=== PATIENT | female | born 1985 ===

== ENCOUNTER → 2019-05-16 07:39 | Outpatient (BNVA) | payer OTHER, SELFPAY | PROVIDERS: Family Provider Family Medicine; PCP Family Medicine; Visit Provider Obstetrics & Gynecology | DX: O09.893 Supervision of other high risk pregnancies, third trimester (principal) | CPT/HCPCS: 81000; 87081 ==

== ENCOUNTER → 2019-05-23 14:19 | Outpatient (BNVA) | payer OTHER, SELFPAY | PROVIDERS: Family Provider Family Medicine; PCP Family Medicine; Visit Provider Obstetrics & Gynecology | DX: O09.893 Supervision of other high risk pregnancies, third trimester (principal) | CPT/HCPCS: 81000; 85027 ==

== ENCOUNTER 2019-06-02 17:30 | Inpatient (IN) | payer OTHER, SELFPAY ==
[2019-06-02] VITALS (19 sets, daily range): BP systolic 0–131; BP diastolic 0–86; PULSE 75–92; RESP 18; TEMP 36.4–36.7; O2SAT 97–100; BMI 30.6
[2019-06-02 18:09] LABS: Basophils % 0.1 %; Eosinophils # 0.1 10^3/uL (0.0-0.8); Eosinophils % 1.1 %; Hematocrit 32.6 % (37.0-47.0); Hemoglobin 10.6 g/dL (11.5-15.3); Lymphocytes # 1.3 10^3/uL (0.8-4.8); Lymphocytes % 15.2 %; Mean Corpuscular HGB Conc 32.5 g/dL (30.0-36.0); Mean Corpuscular Hemoglobin 28.5 pg (28.0-34.0); Mean Corpuscular Volume 87.6 fL (81-99); Mean Platelet Volume 12.4 fL (7.4-10.4); Monocytes # 0.7 10^3/uL (0.2-0.9); Monocytes % 8.6 %; Neutrophils # 6.3 10^3/uL (1.8-7.7); Neutrophils % 74.5 %; Nucleated Red Blood Cells % 0 %; Platelet Count 170 10^3/cmm (130-400); Red Blood Count 3.72 10^6/uL (4.1-5.3); Red Cell Distribution Width 13.2 % (12.1-15.1); White Blood Count 8.4 10^3/uL (4.0-10.0)
--- NOTE | 2019-06-02 18:12 | PM.HPUD ---
H&P update H&P Update: DATE OF SURGERY/PROCEDURE: 06/02/19 DATE H&P PERFORMED: 06/02/19 H&P UPDATE INFORMATION: H&P completed within last 30 days, No changes to prior documentation and H&P to be scanned into chart PREOP DIAGNOSIS: Non-reassuring testing, Prior section - desires repeat, PRIMARY INDICATION FOR PROCEDURE: at 38-57 weeks gestation PLANNED PROCEDURE: Repeat section
[2019-06-02] MEDS: famotidine 20 mg/2 mL INJ IVP (18:19)
[2019-06-02] MEDS: lactated ringers 1,000 ML 125 ML IV (18:19)
[2019-06-02] MEDS: metoclopramide 5 mg/mL SDV 2 mL 10 MG IV ×2 (18:20→18:24)
--- NOTE | 2019-06-02 20:30 | PM.OP ---
Operative Report Date of procedure: 06/02/19 Pre-op Diagnosis: Non-reassuring testing, Prior section - desires repeat, Pre-op Diagnosis: at 38-5/7 weeks gestation, GBS infection in child of prior in third trimester Post-op diagnosis: same (Viable male ) Procedure Done: Repeat low transverse section Surgeon: Haresh Reeves Anesthesia: Other (Spinal) Estimated blood loss (mL): 800 IV fluids (mL): 1,000 Complications: None Brief History: Patient is a 33-year-old female 7, para 2-0-4-1 with an LMP of 09/04/2018 and an EDC of 06/11/2019 based on LMP and consistent with an 8-week ultrasound, which placed her at 38-5/7 weeks gestation today. She had presented to the office for routine visit. While at the office, she reported decreased movement today and as a result an NST was performed. She had a nonreactive NST and then had a biophysical profile performed with 2 off for lack of breathing movements. This gave a total score of 6 out of 10 on the NST with BPP. Recommendations with the findings on this evaluation are to proceed to delivery since she is 38+ weeks gestation for nonreassuring testing. Patient had had 2 prior sections and was requesting repeat section. As a result she was prepared for repeat section. Procedure: Patient was taken to the operating room where spinal anesthesia was obtained. She was prepped and draped in the usual sterile fashion in a dorsal supine position with a leftward tilt. Palma catheter and sequential compression boots had been placed prior to starting the case. Patient's prior Pfannenstiel skin incision was excised with a knife and carried down to the underlying fascia with the knife. Fascia was incised in the midline with the knife and extended laterally with Zhao scissors. Superior aspect of the fascia was grasped with Crystal clamps, elevated, and sharply and bluntly dissected. The inferior aspect of the fascia was grasped with Crystal clamps, elevated, and sharply and bluntly dissected. The rectus muscles were in the midline. Peritoneum was sharply entered. Peritoneal incision was extended both superiorly and inferiorly with good visualization of the bladder. Bladder blade was inserted. The vesicouterine peritoneum was tented up and sharply entered. It was extended laterally and the bladder flap was created digitally. Bladder blade was reinserted. A transverse incision was made with the knife in the lower uterine segment. Clear fluid was obtained upon entry into the uterine cavity. The baby was floating high in the uterus. Initially attempted to deliver the head, but was unsuccessful. Attempted to apply Kiwi vacuum to the head but had difficulty getting adequate seal due to the amount of hair present. Was eventually able to get adequate seal but with initial traction applied the vacuum came off. At this point decision was made to abandon attempted delivery with vacuum. With further fundal pressure the infant's head was delivered. One loop of nuchal cord was noted and reduced. The rest of the delivered atraumatically. Nose and mouth were suctioned with bulb suction. Cord was clamped and cut and the infant was handed off to Dr. Rome and the waiting nurses. Cord blood was obtained. Placenta was delivered via uterine massage. Patient received 20 units of Pitocin in the IV fluids. The uterus was exteriorized and cleared of clots and debris. The uterine incision was closed in a running locking fashion using 0 Vicryl suture. The incision was imbricated using 0 Vicryl suture in a horizontal mattress fashion. The incision was inspected and noted to be hemostatic. Posterior cul-de-sac was thoroughly irrigated and cleared of clots and blood. The uterus was returned to the abdomen. The uterine incision was irrigated and noted to be hemostatic. The gutters were cleared of clots and blood. The rectus muscles and peritoneum were reapproximated in the midline using interrupted stitches of 2-0 Vicryl suture. The muscle layer was irrigated and noted to be hemostatic. The fascia was reapproximated using 0 Vicryl suture in a running fashion. The subcutaneous layer was irrigated and brought to hemostasis using electrocautery. It was reapproximated using 3-0 plain suture in an interrupted fashion and also 3-0 Vicryl suture in a running fashion. Skin was reapproximated using 4-0 Monocryl in a subcuticular fashion. Steri-Strips were applied. Patient tolerated the procedures well. Sponge, needle, and instrument counts were correct. DRAINS: Palma catheter SPECIMENS: None FINDINGS: 1. Viable, male infant, cephalic presentation, weighing 7 lbs 1 oz (3215 g) with a length of 20-1/2 inches and Apgars of 8 at 1 minute and 8 at 5 minutes. 2. Normal appearing uterus, tubes, and ovaries. POSTOPERATIVE STATUS: The patient was left to recover in satisfactory condition
--- NOTE | 2019-06-02 20:41 | ANE.PACU ---
 Inpatient post-anesthesia follow up: Airway intact: Yes Vital signs: Temperature Pulse Rate 75 Respiratory Rate Blood Pressure 119/55 Pulse Oximetry Oxygen Delivery Me thod Room Air Oxygen Flow Rate Fraction of Inspir ed Oxygen Hydration adequate: Yes Nausea and vomiting: No Pain level: 1 Mental status: Baseline
--- NOTE | 2019-06-02 21:55 | PC.NURSE ---
PATIENT MOVED UP FROM PACU TO PP ROOM 207 AT THIS TIME VIA BED
[2019-06-03] VITALS (9 sets, daily range): BP systolic 98–123; BP diastolic 49–70; PULSE 66–84; RESP 18; TEMP 36.6–36.9; O2SAT 98
[2019-06-03] MEDS: lanolin oint 7 gm 1 APPLIC TOPICAL (01:21)
[2019-06-03] MEDS: ketorolac 30 mg/mL INJ IVP (02:47)
[2019-06-03] MEDS: sodium chloride 0.9% 500 ML 999 ML IV (03:40)
[2019-06-03] MEDS: diphenhydrAMINE 50 mg/mL SDV 1mL 25 MG IVP (03:46)
[2019-06-03] MEDS: dextrose 5%-lactated ringers 1,000 ML 125 ML IV (04:11)
--- NOTE | 2019-06-03 05:42 | PC.NURSE ---
Patient up to chair at this time, patient tolerated well
[2019-06-03] MEDS: HYDROcodone-acetaminophen 5-325 mg Tablet PO ×2 (06:14→19:15)
--- NOTE | 2019-06-03 08:07 | PC.NURSE ---
This mom reports nipple pinching with . Helped her with chin first latch, using football and cross cradle hold. She reports improvement but not completely comfortable yet. She is going to continue to work on latch on her own. Provided literature and contact information.
[2019-06-03 09:00] LABS: Hematocrit 27.9 % (37.0-47.0); Hemoglobin 8.9 g/dL (11.5-15.3); Mean Corpuscular HGB Conc 31.9 g/dL (30.0-36.0); Mean Corpuscular Hemoglobin 28.4 pg (28.0-34.0); Mean Corpuscular Volume 89.1 fL (81-99); Mean Platelet Volume 12.1 fL (7.4-10.4); Platelet Count 130 10^3/cmm (130-400); Red Blood Count 3.13 10^6/uL (4.1-5.3); Red Cell Distribution Width 13.4 % (12.1-15.1); White Blood Count 8.2 10^3/uL (4.0-10.0)
[2019-06-03] MEDS: prenatal vitamin Capsule 1 CAP PO (10:05)
[2019-06-03] MEDS: docusate sodium 100 mg Capsule PO ×2 (10:05→19:15)
[2019-06-03] MEDS: sertraline 50 mg Tablet PO (10:06)
[2019-06-03] MEDS: ferrous sulfate EC 325 mg Tablet PO ×2 (10:07→19:15)
[2019-06-03] MEDS: acetaminophen 325 mg Tablet 650 MG PO (13:20)
--- NOTE | 2019-06-03 14:49 | PC.NURSE ---
pt voiced she is going to bottle feed and try to possibly pump when she gets home.
[2019-06-04] MEDS: acetaminophen 325 mg Tablet 650 MG PO (03:09)
[2019-06-04 04:00] VITALS: BP 110/70; PULSE 66; RESP 18; TEMP 36.6
[2019-06-04] MEDS: HYDROcodone-acetaminophen 5-325 mg Tablet PO ×3 (08:46→19:23)
[2019-06-04] MEDS: docusate sodium 100 mg Capsule PO ×2 (08:46→19:22)
[2019-06-04] MEDS: sertraline 50 mg Tablet PO (08:48)
[2019-06-04] MEDS: prenatal vitamin Capsule 1 CAP PO (08:49)
[2019-06-04 10:15] VITALS: BP 112/67; PULSE 73; RESP 16; TEMP 36.7
--- NOTE | 2019-06-04 12:25 | P.PN_ITS ---
Subjective Subjective: Interval history: Visit note for 06/03/2019. Denies complaints at this time. Reports tolerating liquids without nausea or vomiting. Denies shortness of breath or chest pains. Denies lightheadedness or dizziness with ambulation. Reports passing flatus. Denies problems with urination. Vitals/I&O/Wt Vital Signs 06/03/19 16:17 Temp 98.2 Pulse 68 Resp 18 BP 98/60 Weight last 48 hrs Weight 162 lb Physical Exam Const: COMMON NORMALS: no apparent distress, average body habitus, alert and well nourished GENERAL APPEARANCE: well developed ORIENTATION/CONSCIOUSNESS: Yes oriented to person, Yes oriented to place and Yes oriented to time Resp: COMMON NORMALS: normal respiratory effort and clear to auscultation bilaterally AUSCULTATION: clear to auscultation bilaterally Cardio: COMMON NORMALS: regular rate, regular rhythm, no gallops, no murmurs and no rub RATE: regular rate RHYTHM: regular rhythm PERIPHERAL PULSES: posterior tibial pulses present GI: COMMON NORMALS: soft to palpation, no hepatosplenomegaly and no masses (Except for mildly tender firm uterus approx 2 fingerbreaths below umbilicus) AUSCULTATION: Yes normoactive bowel sounds PALPATION: Yes soft, Yes tender (lower abdomen), Yes no hepatosplenomegaly and No hernia : EXTERNAL FEMALE EXAM: No hernia Extremity: OTHER: No calf pain bilaterally. Trace to 1+ lower extremity edema Neuro: SENSORIUM/ORIENTATION: Yes alert, Yes oriented to person, Yes oriented to place and Yes oriented to time Psych: COMMON NORMALS: affect normal MOOD & AFFECT: Yes euthymic mood Urinary Catheter Management^: Palma: Cath Placed During This Visit: no Data : 06/03/19 08:46 A&P Assessment and plan (1) Previous section complicating , with delivery: Postoperative day 1, s/p repeat section. Patient is doing well. Encouraged ambulation. May shower. Use of oral pain m edications discussed with patient. Diet has been advanced. Status: Acute Code(s): O34.219 - Maternal care for unspecified type scar from previous delivery (2) Acute blood loss anemia: Patient currently asymptomatic with ambulation. Plan iron after going home Status: Acute Code(s): D62 - Acute posthemorrhagic anemia Attestations Medical Necessity Statement*: Patient is 1 day status post section. Coding Level of Care Code Acute Go Cart Mechanic for Chg Fwd Exam Problem Focused Diagnoses Previous section complicating , with delivery O34.219 Acute blood loss anemia D62
--- NOTE | 2019-06-04 12:47 | PM.DCS ---
Discharge Providers Date of Admission: 06/02/19 17:30 Date of Discharge: 06/04/19 Attending Provider at Admission: Haresh Reeves MD Attending Provider at Discharge: Haresh Reeves MD Primary Care Provider: Viri Corrales DO Diagnoses at Discharge Discharge Diagnosis (1) Previous section complicating , with delivery: Status: Acute (2) Acute blood loss anemia: Status: Acute Other Information Additional DC diagnoses/information: Non-reassuring testing at 38-5/7 weeks gestation, GBS infection in child of prior in third trimester. Viable male Reason for Visit Reason for Visit: Reason For Visit: repeat Hospital Course Hospital Course: Patient is a 33-year-old white female 7, para 2-0-4-1 with an LMP of 09/04/2018 and an EDC of 07/01/2019 based on LMP and consistent with an 8-week ultrasound, which placed her at 38-5/7 weeks gestation. Her care has been mainly provided by Dr. Haresh Reeves at [facility]. She had transferred to to our care during the . She had presented to the office for routine visit on 06/02/2019. At that visit she had reported decreased movement. NST was performed which was nonreactive. She had a biophysical profile performed with lack of breathing movements. This gave a total score of 6 out of 10. Since she was already 38-5/7 weeks gestation, recommendations were to proceed with delivery. She had had 2 prior sections and was planning for repeat section. As a result she was admitted to the hospital for a repeat section. A repeat low transverse section was performed with the delivery of a viable male weighing 7 pounds 1 ounce (3215 g) with a length of 20-1/2 inches and Apgars of 8 at 1 minute and 8 at 5 minutes. She received Duramorph for pain management following the delivery. Patient did well following delivery. DAY 1 Patient is doing well. She has started passing flatus during the day and diet had been advanced. Her pain had been previously well controlled with Duramorph and was being switched over to oral medications. She was ambulating without lightheadedness or dizziness. She was urinating without difficulty following removal of the catheter. She was afebrile with stable vital signs. She had been noted to be anemic but was asymptomatic. Activities were increased during the day. DAY 2 Patient continues to do well. She denies any lightheadedness or dizziness with ambulation. She states that her pain is been well controlled. She denied shortness of breath or chest pains. She is tolerating regular diet without nausea or vomiting. She denies problems with urination. She reports passing flatus. She states that her bleeding has slowed. She is breast-feeding. She would like to be released to home today. Physical Exam: See below Plan She will be discharge to home. Discharge instructions discussed with patient. Patient to follow-up in the office in 2 and 6 weeks following surgery. She will be taking oral iron in addition to the vitamins at home. Physical Exam Const: COMMON NORMALS: no apparent distress, average body habitus, alert and well nourished GENERAL APPEARANCE: well developed ORIENTATION/CONSCIOUSNESS: Yes oriented to person, Yes oriented to place and Yes oriented to time Resp: COMMON NORMALS: normal respiratory effort and clear to auscultation bilaterally AUSCULTATION: clear to auscultation bilaterally Cardio: COMMON NORMALS: regular rate, regular rhythm, no gallops, no murmurs and no rub RATE: regular rate RHYTHM: regular rhythm GI: COMMON NORMALS: soft to palpation, no hepatosplenomegaly and no masses (Except for mildly tender firm uterus 1 to 2 fingerbreadths below the umbilicus) INSPECTION: Yes incision (Clean, dry, intact with Steri-Strips present) AUSCULTATION: Yes normoactive bowel sounds PALPATION: Yes soft, Yes tender (Mild tenderness in lower abdomen), Yes no hepatosplenomegaly and No hernia : EXTERNAL FEMALE EXAM: No hernia Neuro: SENSORIUM/ORIENTATION: Yes alert, Yes oriented to person, Yes oriented to place and Yes oriented to time Psych: COMMON NORMALS: affect normal MOOD & AFFECT: Yes euthymic mood Urinary Catheter Management^: Palma: Cath Placed During This Visit: no Discharge Data Data Completed and Pendin06/02/2019: CBC: WBC 8.4, hemoglobin 10.6, hematocrit 32.6, platelet 170,000 06/03/2019: CBC: WBC 8.2, hemoglobin 8.9, hematocrit 27.9, platelet 130,000 Vitals: Last Vital Signs Temp 97.9 F 06/04/19 04:00 Pulse 66 06/04/19 04:00 Resp 18 06/04/19 04:00 BP 110/70 06/04/19 04:00 Pulse Ox 98 06/03/19 16:17 Discharge Plan Discharge Patient Disposition: Home, Self-Care Condition: Stable Prescriptions: New hydrocodone-acetaminophen 5-325 mg Tablet 1 - 2 tab PO Q6H PRN (Reason: Moderate To Severe Pain) Qty: 30 RF: 0 Continued sertraline 50 MG 50 mg PO DAILY RF: 0 1 TAB 1 tab PO DAILY RF: 0 Discharge Orders: Discharge Order (Routine); Ordered 06/04/19 Ordered By: Haresh Reeves Referrals: Haresh Reeves MD [Physician] - 2 weeks (2 weeks postop check with Dr. Reeves [address] Reeves) Discharge Diet: Regular Discharge Activity: Resume usual activity Patient Instructions: OB [facility] Activity Restrictions/Additional Instructions: May use: ---Mxul-pye-abilowi Ibuprofen 200 mg, 4 tablets 3 times a day as needed for pain. ---Cacr-fqj-ezptsjy MiraLax (or store brand), follow instructions on bottle, as needed for constipation. Obtain iron tablet and take once a day. Discharge Attestations Time Spent in Discharge Care*: less than 30 min Quality Metrics Clinical Quality Measures During this hospital stay, did patient experience: None Coding Level of Care Code Acute Wood Processing Worker for Chg Fwd Exam Problem Focused Diagnoses Previous section complicating , with delivery O34.219 Acute blood loss anemia D62
[2019-06-04 15:15] VITALS: BP 127/75; PULSE 80; RESP 16; TEMP 36.3
[2019-06-04 18:21] VITALS: BP 110/70; PULSE 66; RESP 18; TEMP 36.6; O2SAT 98
[2019-06-04 19:50] VITALS: BP 106/64; PULSE 102; RESP 18; TEMP 36.4
== END 2019-06-04 19:50 | disposition home or self-care (01) | DRG 787 ==
PROVIDERS: Admitting Provider Obstetrics & Gynecology; Family Provider Family Medicine; PCP Family Medicine; Visit Provider Obstetrics & Gynecology
PROC: 10D00Z1 Extraction of Products of Conception, Low, Open Approach (ICD-10-PCS; CPT 59514; principal; 2019-06-02 19:00)
DX: O34.211 Maternal care for low transverse scar from previous cesarean delivery (principal); D62 Acute posthemorrhagic anemia; Z3A.38 38 weeks gestation of pregnancy; Z37.0 Single live birth; O76 Abnormality in fetal heart rate and rhythm complicating labor and delivery; O69.81X0 Labor and delivery complicated by cord around neck, without compression, not applicable or unspecified; O99.02 Anemia complicating childbirth
CPT/HCPCS: 12345; 36415; 51702; 59025; 59409; 76816; 76819; 81000; 84315; 85025; 85027; 86900; 96374; 96375; 98960; 99211; J0690; J1200; J1885; J2001; J2274; J2405; J2590; J2765; J3010; J3490; J7040

== ENCOUNTER → 2019-07-22 12:23 | Outpatient (BNVA) | payer OTHER, SELFPAY | PROVIDERS: Family Provider Family Medicine; PCP Family Medicine; Visit Provider Obstetrics & Gynecology | DX: Z12.4 Encounter for screening for malignant neoplasm of cervix (principal); Z39.1 Encounter for care and examination of lactating mother; O90.81 Anemia of the puerperium; Z30.9 Encounter for contraceptive management, unspecified | CPT/HCPCS: 85027; 88175 ==

== ENCOUNTER → 2020-10-04 13:12 | Outpatient (BNVA) | payer OTHER, SELFPAY | PROVIDERS: Family Provider Family Medicine; PCP Family Medicine; Visit Provider Obstetrics & Gynecology | DX: Z32.01 Encounter for pregnancy test, result positive (principal) | CPT/HCPCS: 81025 ==

== ENCOUNTER → 2021-05-15 16:25 | Outpatient (BNVA) | payer OTHER, SELFPAY | PROVIDERS: PCP Family Medicine; Visit Provider Family Medicine | DX: Z01.812 Encounter for preprocedural laboratory examination (principal) | CPT/HCPCS: 87635 ==

== ENCOUNTER 2021-05-17 05:30 | Inpatient (IN) | payer OTHER, SELFPAY ==
--- NOTE | 2021-04-30 12:05 | P.ANESASSM_ITS ---
Pre-Anesthetic Assessment Pre-Anesthetic Assessment: Height/Weight: Height 1.55 m Preop Diagnosis: Non-reassuring testing, Prior section - desires repeat, Proposed Procedure: Operation Date: 05/17/21 07:00 Proposed Procedures p Section Repeat(Not Applicable) - Alexis Lee MD Was Beta Millie taken within 24 hours: N/A Was Clonidine taken within 24 hours: N/A Social: Social History: No alcohol and No tobacco Exam: Pre-Anes Outpt Exam: alert, oriented x 3, clear to auscultation bilaterally and regular rate & rhythm Airway: Submandibular: WNL Cervical ROM: WNL MP: 1 Dentition: Full History/ROS: No significant history except as noted Pulmonary: Pulmonary: None reported CV/HEM: CV/HEM: None reported : : None reported Hepatic: Hepatic: None reported GI: GI: None reported Metabolic: Metabolic: None reported Musc/skel: Musc/skel: None reported Neuropsych: Neuropsych: None reported Anesthetic Plan: ASA status: 2 Anesthesia: Anesthesia Evaluation, Eval. 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 States negative work-up in 2013. Surgical History History of section, low transverse (05/21/14) Emergency C/S. Performed by Dr. Rajeev Mae at [facility] in [place], [place]. Low transverse incision with 2 layer closure confirmed on op note. History of section, low transverse (11/28/16) Scheduled repeat C/S. Performed by Dr. Raghavendra Bean in [place], [place]. Low transverse incision with 2 layer closure confirmed on op note. History of section, low transverse (06/02/19) Repeat LTCS. Performed by Dr. Reeves at [facility] in [place], [place]. Confirmed LTCS with 2 layer closure History of dilation and curettage (~2015) miscarriage Family History Other Family history not known due to adoption Social History Smoking and tobacco status: never smoked Data Anesthesia Cardiac Studies: No Data to Display
[2021-05-17] VITALS (25 sets, daily range): BP systolic 89–115; BP diastolic 36–74; PULSE 45–88; RESP 12–16; TEMP 36.4–36.8; O2SAT 98–100; BMI 31.9
[2021-05-17] MEDS: lactated ringers 1,000 ML 999 ML IV (06:15)
[2021-05-17 06:48] LABS: Basophils % 0.1 %; Eosinophils # 0.1 10^3/uL (0.0-0.8); Eosinophils % 1.2 %; Hematocrit 38.4 % (37.0-47.0); Hemoglobin 12.9 g/dL (11.5-15.3); Lymphocytes # 1.5 10^3/uL (0.8-4.8); Lymphocytes % 22.4 %; Mean Corpuscular HGB Conc 33.6 g/dL (30.0-36.0); Mean Corpuscular Hemoglobin 31.5 pg (28.0-34.0); Mean Corpuscular Volume 93.7 fl (81-99); Mean Platelet Volume 12.9 fL (7.4-10.4); Monocytes # 0.7 10^3/uL (0.2-0.9); Monocytes % 10.2 %; Neutrophils # 4.51 10^3/uL (1.8-7.7); Neutrophils % 65.5 %; Nucleated Red Blood Cells % 0 %; Platelet Count 137 10^3/cmm (130-400); Red Cell Distribution Width 13.9 % (12.1-15.1); White Blood Count 6.9 10^3/uL (4.0-10.0)
--- NOTE | 2021-05-17 06:51 | P.HP_ITS ---
Providers/Chief Complaint Admitting Physician: Alexis Lee MD Primary Care Provider: Viri Corrales DO Chief Complaint: RHONA 05/24/2021 HPI [employer] History of Present Illness Marianna Mckeon is a 35 year old 8 para 3052 female at 39 weeks estimated gestational age based on a first trimester ultrasound presenting for a repeat section. Her has been completely unremarkable. She has had 3 previous sections. We discussed the risk of a repeat including the risks of bleeding, infection, and damage to intra-abdominal organs. She has no further questions and wishes to proceed. Her blood type is AB+. She has a history of an to have GBS sepsis. She is rubella immune. She is COVID-negative. The remainder of her labs and infectious disease panel are within normal limits. Review of Systems General: Reports: 10 or more systems reviewed and unremarkable except in HPI and below Const: Reports: fatigue; Denies: fever(s) Eyes: Denies: change in vision Card: Denies: chest pain Musc: Reports: back pain Chapin/Lymph: Denies: easy bruising Medications/Allergies Home Medications Medication Instructions Recorded Confirmed Last Taken Type 1 tab PO DAILY 05/24/19 03/04/21 06/01/19 19:00 History sertraline 50 mg tablet 50 mg PO DAILY #30 tab 10/10/19 03/04/21 Unknown Rx Allergies Allergy/AdvReac Type Severity Reaction Status Date / Time No Known Allergies Allergy Verified 03/04/21 09:43 PFSH [employer] PFSH: Medical History Anxiety with depression Premature ventricular contractions 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 States negative work-up in 2013. Surgical History History of section, low transverse (05/21/14) Emergency C/S. Performed by Dr. Rajeev Mae at [facility] in [place], [place]. Low transverse incision with 2 layer closure confirmed on op note. History of section, low transverse (11/28/16) Scheduled repeat C/S. Performed by Dr. Raghavendra Bean in [place], [place]. Low transverse incision with 2 layer closure confirmed on op note. History of section, low transverse (06/02/19) Repeat LTCS. Performed by Dr. Reeves at [facility] in [place], [place]. Confirmed LT CS with 2 layer closure History of dilation and curettage (~2015) miscarriage Family History Other Family history not known due to adoption Social History Smoking and tobacco status: never smoked Other Female Reproductive History: Hx Age of Menarche: 12 Duration of menses: 6-7 days Date of Last Menstrual Period: 08/20/20 Cycle Length: every 28 days Menstrual flow: normal/abnormal: normal History History History 8 Term 3 Miscarriages/Ectopic 4 0 Living Children 2 Care RHONA Calculator Estimated Delivery Date Method Current WG Current Estimate 05/27/21 LMP (Certain) 38w 4d Vitals/I&O/Wt Last Vital Signs Pulse 82 05/17/21 05:43 BP 110/56 05/17/21 05:43 Pulse Ox 98 05/17/21 05:39 Physical Exam Const: COMMON NORMALS: patient oriented x3 and alert HENMT: COMMON NORMALS: moist oral mucous membranes HEAD & SCALP: normal to inspection Chest: COMMONS NORMALS: normal inspection of the chest Resp: COMMON NORMALS: clear to auscultation bilaterally AUSCULTATION: clear to auscultation bilaterally Cardio: COMMON NORMALS: regular rate and regular rhythm RATE: regular rate RHYTHM: regular rhythm GI: INSPECTION: Yes normal to inspection and Yes other (Gravid) Extremity: COMMON NORMALS: normal to inspection GENERAL: Yes edema (Trace) Neuro: COMMON NORMALS: patient oriented x3, moves all extremities and no sensory deficits noted SENSORIUM/ORIENTATION: Yes alert Psych: COMMON NORMALS: mental status grossly normal Skin: COMMON NORMALS: no rashes or lesions noted GENERAL SKIN EXAM: no rashes or lesions noted Data : 05/17/21 05:50 A&P Assessment and plan (1) 39 weeks gestation of : We will proceed with a repeat section. Status: Acute (2) History of : Status: Acute Attestations Medical Necessity Statement*: Routine and post care. Coding Level of Care Code Acute Chocolate Finisher Operator for Chg Fwd Diagnoses 39 weeks gestation of Z3A.39 History of Z98.891
[2021-05-17] MEDS: famotidine 20 mg/2 mL INJ IVP (06:57)
--- NOTE | 2021-05-17 06:57 | P.ANESUD_ITS ---
Pre-Anesthetic Update Pre-Anesthetic Assessment: Date of Surgery/Procedure: 05/17/21 Preop Maryanne gnosis: Non-reassuring testing, Prior section - desires repeat, Proposed Procedure: Operation Date: 05/17/21 07:00 Proposed Procedures p Section Repeat(Not Applicable) - Alexis Lee MD Labs Last 48hrs: Laboratory Results - last 48 hr 05/17/21 05:50 WBC 6.9 RBC 4.10 Hgb 12.9 Hct 38.4 MCV 93.7 MCH 31.5 MCHC 33.6 RDW 13.9 Plt Count 137 MPV 12.9 H Neut % (Auto) 65.5 Lymph % (Auto) 22.4 Faulkner % (Auto) 10.2 Eos % (Auto) 1.2 Baso % (Auto) 0.1 Neut # (Auto) 4.51 Lymph # (Auto) 1.5 Faulkner # (Auto) 0.7 Eos # (Auto) 0.1 Baso # (Auto) 0.0 Nucleated RBC % (a uto) 0 Nucleated RBCs # 0.0 Vitals: Pulse Rate 82 05/17/21 05:43 Blood Pressure 110/56 05/17/21 05:43 Pulse Oximetry 98 05/17/21 05:39 Cardiac Studies: No Data to Display
[2021-05-17] MEDS: metoclopramide 5 mg/mL SDV 2 mL 10 MG IVP (06:58)
[2021-05-17] MEDS: citric acid-sodium citrate 30 mL UDC PO (07:02)
--- NOTE | 2021-05-17 08:32 | PM.OP ---
Operative Report Date of procedure: May 17, 2021 Pre-op Diagnosis: 35-year-old female at 39 weeks with a history of sections Post-op diagnosis: same Procedure Done: Lower transverse section. Specimens removed/disposition: 1. Healthy appearing male with Apgars of 7, 8 and weight of 6 pounds 5 ounces 2. Placenta with a three-vessel cord delivered intact Surgeon: Alexis Lee Anesthesia: Other (Spinal) Estimated blood loss (mL): 800 Complications: None Disposition: floor (Obstetric) Procedure: The patient was brought back to the operating room where she was prepped and draped in usual sterile fashion. Anesthesia was found to be adequate. A lower transverse skin incision was then made with a #10 blade. There was a hypertrophic scar which was dissected away from the skin. I then dissected down to the underlying subcutaneous tissue until arriving at the prerectal fascia. The fascia was then nicked with the scalpel bilaterally. The fascial incisions were then carried laterally with Zhao scissors. Attention was then turned to the superior aspect of the incision which was grasped with kochers and tented up away from the underlying rectus abdominis muscles. The muscles were then dissected away from the fascia manually, and later with Zhao scissors. Attention was then turned to the inferior aspect of the incision, and the fascia was dissected away from the underlying muscle in similar fashion. The rectus abdominis muscles were then spread manually. The peritoneum was entered manually. Excellent visualization of the uterus was noted. A lower transverse uterine incision was then made with a #10 blade. Upon arriving at the intrauterine cavity, the uterine incision was then extended manually. The infant was noted to be in vertex position. The baby was delivered without difficulty. After delivery of the head, the mouth and nose were suctioned at the site of the incision. There was no meconium. There was no nuchal cord. The remainder of the body was then delivered and placed on the abdomen. The cord was cut and clamped. The baby was then handed to the waiting nurse. The placenta was removed intact. The uterus was externalized. The intrauterine cavity was cleansed of any remaining debris. The uterine incision was reapproximated in 2 layers. The first layer was performed with 0 Vicryl in a running locked stitch. The second layer was an imbricating stitch also using 0 Vicryl. The uterus was replaced into the abdomen. The peritoneum was then irrigated with warm saline. I reexamined the uterine incision and found it to be hemostatic. The rectus abdominis muscles were then reapproximated using 0 Vicryl in a running stitch. The fascia was then reapproximated using 0 Vicryl in running stitch. The subcutaneous tissue was then reapproximated with 0 Vicryl. The skin was reapproximated using ramana. A sterile dressing was placed. All counts were correct x2. Both the mother and baby were in stable condition. Associated Problem List Diagnoses (1) History of : (2) 39 weeks gestation of :
[2021-05-17] MEDS: dextrose 5%-lactated ringers 1,000 ML 125 ML IV ×2 (10:00→18:25)
[2021-05-17] MEDS: ondansetron 2 mg/ML SDV 2 mL 4 MG IVP (11:32)
--- NOTE | 2021-05-17 12:59 | ANE.PACU2 ---
Inpatient post-anesthesia follow up: Airway intact: Yes Vital signs: Temperature 97.5 F Pulse Rate 68 Respiratory Rate 14 Blood Pressure 104/62 Pulse Oximetry 100 Oxygen Delivery Me thod Oxygen Flow Rate Fraction of Inspir ed Oxygen Hydration adequate: Yes Nausea and vomiting: No Pain level: 3 Mental status: Baseline Additional Comments: EMR review
[2021-05-17] MEDS: diphenhydrAMINE 50 mg/mL SDV 1mL 25 MG IVP (14:12)
[2021-05-17] MEDS: ketorolac 30 mg/mL INJ IVP ×2 (14:13→21:49)
[2021-05-17] MEDS: docusate sodium 100 mg Capsule PO (18:08)
[2021-05-17 23:05] LABS: Hematocrit 29.2 % (37.0-47.0); Hemoglobin 9.8 g/dL (11.5-15.3); Mean Corpuscular HGB Conc 33.6 g/dL (30.0-36.0); Mean Corpuscular Hemoglobin 31.8 pg (28.0-34.0); Mean Corpuscular Volume 94.8 fl (81-99); Mean Platelet Volume 12.5 fL (7.4-10.4); Platelet Count 116 10^3/cmm (130-400); Red Blood Count 3.08 10^6/uL (4.1-5.3); Red Cell Distribution Width 14.1 % (12.1-15.1)
[2021-05-18] MEDS: HYDROcodone-acetaminophen 5-325 mg Tablet PO ×4 (01:06→14:22)
[2021-05-18 01:50] VITALS: BP 92/52; PULSE 81; RESP 14; TEMP 37; O2SAT 98
[2021-05-18] MEDS: ketorolac 30 mg/mL INJ IVP (04:26)
[2021-05-18 04:45] VITALS: BP 102/67; PULSE 87; RESP 12; TEMP 36.6; O2SAT 98
--- NOTE | 2021-05-18 07:41 | PM.OBGYDC ---
Discharge Providers COORDINATOR OF EVALUATION Date of Admission: 05/17/21 05:30 Date of Discharge: 05/19/21 Attending Provider at Admission: Alexis Lee MD Attending Provider at Discharge: Alexis Lee MD Primary Care Provider: Viri Corrales DO Diagnoses at Discharge Discharge Diagnosis (1) History of : Status: Resolved (2) 39 weeks gestation of : Status: Resolved Reason for Visit Reason for Visit: RHONA 05/24/2021 Hospital Course Hospital Course The patient presented to the hospital for a repeat section. The was unremarkable. Her recovery was also unremarkable. Her pain was well controlled. Her bleeding was within normal limits. She breast-fed well. She had no incisional bleeding. She passed gas within 24 hours of the surgery. Her diet was advanced and she had no difficulty eating a regular diet. Information Peripartum Data: Infant Delivery Method: Physical Exam Narrative: EXAM NARRATIVE: She is in no acute distress Lungs are clear auscultation bilaterally Her heart has a regular rate and rhythm Her fundus is below the umbilicus and firm Her dressing is clean, dry and intact Her extremities have trace edema Urinary Catheter Management^: [place]: Cath Placed During This Visit: yes, but has since been removed by the nurse Reason for Continuing Indwelling Catheter: Required Immobilization for Trauma or Surgery or Anesthesia Urinary Catheter Date of Insertion: 05/17/21 Urinary Catheter Time of Insertion: 07:15 Date Urinary Catheter Removed: 05/17/21 Time Urinary Catheter Discontinued: 22:10 History History History 8 Term 3 Miscarriages/Ectopic 4 0 Living Children 2 Discharge Data Data Completed and Pending: Labs from last 24 hours 05/17/21 21:45 WBC 8.0 RBC 3.08 L Hgb 9.8 L Hct 29.2 L MCV 94.8 MCH 31.8 MCHC 33.6 RDW 14.1 Plt Count 116 L MPV 12.5 H Vitals: Last Vital Signs Temp 98.6 F 05/18/21 01:50 Pulse 81 05/18/21 01:50 Resp 14 05/18/21 01:50 BP 92/52 05/18/21 01:50 Pulse Ox 98 05/18/21 01:50 Discharge Plan Discharge Patient Disposition: Home Condition: Stable Prescriptions: New docusate sodium 100 mg Capsule 200 mg PO BID Qty: 60 RF: 1 ibuprofen 800 mg Tablet 800 mg PO TID Qty: 45 RF: 0 hydrocodone-acetaminophen 5-325 mg Tablet 1 - 2 tab PO Q6H PRN (Reason: Moderate To Severe Pain) Qty: 28 RF: 0 Continued 1 TAB 1 tab PO DAILY RF: 0 Discharge Orders: Discharge Order (Routine); Ordered 05/18/21 Ordered By: Alexis Lee Referrals: Alexis Lee MD [Physician] - 4-7 days (At the same time as her baby) Discharge Diet: Usual diet Discharge Activity: Limit activity as instructed Patient Instructions: Depression (DC), Caring for Your Baby (DC), Your Baby (DC), and Nipple Soreness (DC), Bleeding (DC), Preeclampsia and Eclampsia After Delivery (GEN), (DC), Breast Care for the Mother (DC), Hemorrhage (DC), OB Food/Drug Interaction Guide, OB Care at Home, Opioid Safety Discharge Attestations COORDINATOR OF EVALUATION Time Spent in Discharge Care*: less than 30 min Specific Discharge Activities: Specific discharge activities: educating patient and educating and/or supporting family/caregiver Coding Level of Care Code Acute [employer] for Chg Fwd Diagnoses History of Z98.891 39 weeks gestation of Z3A.39
[2021-05-18] MEDS: ibuprofen 800 mg tablet PO ×2 (09:31→14:20)
[2021-05-18] MEDS: ferrous sulfate EC 325 mg Tablet PO (09:31)
[2021-05-18] MEDS: prenatal vitamin Capsule 1 CAP PO (09:31)
[2021-05-18] MEDS: docusate sodium 100 mg Capsule PO ×2 (09:31)
[2021-05-18 10:20] VITALS: BP 110/68; PULSE 69; RESP 18; TEMP 36.9; O2SAT 99
[2021-05-18 14:31] VITALS: BP 97/63; PULSE 88; RESP 16; TEMP 36.7
[2021-05-18 14:50] VITALS: BP 97/63; PULSE 88; RESP 16; TEMP 36.7
== END 2021-05-18 14:49 | disposition home or self-care (01) | DRG 788 ==
PROVIDERS: Admitting Provider Family Medicine; PCP Family Medicine; Visit Provider Family Medicine
PROC: 10D00Z1 Extraction of Products of Conception, Low, Open Approach (ICD-10-PCS; CPT 59514; principal; 2021-05-17 07:00)
DX: O34.219 Maternal care for unspecified type scar from previous cesarean delivery (principal); Z3A.39 39 weeks gestation of pregnancy; Z37.0 Single live birth
CPT/HCPCS: 12345; 36415; 51702; 85025; 85027; J1200; J1885; J2274; J2370; J2405; J2765; J3490

== ENCOUNTER 2023-08-06 14:01 | Outpatient (CLI) | payer OTHER, SELFPAY ==
[2023-08-06 14:08] VITALS: BP 106/56; PULSE 102
[2023-08-06 14:39] VITALS: BP 104/71; PULSE 104
== END 2023-08-06 14:50 | disposition home or self-care (01) ==
LOC: OPOB 14:02 → OBGYN 14:42
PROVIDERS: PCP Family Medicine; Visit Provider Family Medicine
DX: O26.899 Other specified pregnancy related conditions, unspecified trimester (principal); Z3A.00 Weeks of gestation of pregnancy not specified; R10.9 Unspecified abdominal pain
CPT/HCPCS: 59025; 83986; 99211

== ENCOUNTER 2023-08-19 05:28 | Inpatient (IN) | payer OTHER, SELFPAY ==
--- NOTE | 2023-08-04 10:10 | P.ANESASSM_ITS ---
Pre-Anesthetic Assessment Height/Weight: Height 1.55 m Operation Date: 08/19/23 07:20 Proposed Procedures p Section Repeat With Tubal 63568,Z34.83,Z98.890,Z30.2(Bilateral) - Alexis Lee MD Familial anesthetic complications: Failed epidural with first requiring conversion to general (however was emergency and baby did not live, so possible general was performed for crash and no time to dose up epidural) Social No alcohol and No tobacco Exam alert, oriented x 3, clear to auscultation bilaterally and regular rate & rhythm Airway Mallampati: Class II Dentition: full Anesthetic Plan ASA status: 2 Anesthesia: Regional (specify below) Risk of > 500 ml blood loss (7ml/kg in children): No Medications/Allergies Home Medications Medication Instructions Recorded Confirmed Last Taken Type 1 tab PO DAILY 05/24/19 05/18/21 05/16/21 08:00 History docusate sodium 100 mg capsule 200 mg (2 x 100 mg) PO BID #60 caps 05/18/21 Unknown Rx hydrocodone 5 mg-acetaminophen 325 1 - 2 tab PO Q6H PRN Moderate To 05/18/21 Unknown Rx mg tablet Severe Pain #28 tabs ibuprofen 800 mg tablet 800 mg PO TID #45 tabs 05/18/21 Unknown Rx Allergies Allergy/AdvReac Type Severity Reaction Status Date / Time No Known Allergies Allergy Verified 05/18/21 01:42 [facility] Anesthesia Medical History (Updated 05/19/21 @ 00:00 by STACIA Nguyen) Anxiety with depression Premature ventricular contractions 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 States negative work-up in 2013. Surgical History (Updated 05/19/21 @ 08:11 by Alexis Lee MD) History of section, low transverse (06/02/19) Repeat LTCS. Performed by Dr. Reeves at [facility] in [place], [place]. Confirmed LTCS with 2 layer closure History of section, low transverse (11/28/16) Scheduled repeat C/S. Performed by Dr. Raghavendra Bean in [place], [place]. Low transverse incision with 2 layer closure confirmed on op note. History of dilation and curettage (~2015) miscarriage History of section, low transverse (05/21/14) Emergency C/S. Performed by Dr. Rajeev Mae at [facility] in [place], [place]. Low transverse incision with 2 layer closure confirmed on op note. Family History Other Family history not known due to adoption Social History Smoking and tobacco/nicotine status: never used tobacco/nicotine Substance/Drug Use: never Data Anesthesia Cardiac Studies: No Data to Display
[2023-08-19] VITALS (102 sets, daily range): BP systolic 96–125; BP diastolic 47–73; PULSE 39–88; RESP 15–16; TEMP 36.1–36.8; O2SAT 92–100; BMI 31.7
[2023-08-19] MEDS: lactated ringers 1,000 ML 999 ML IV (06:00)
[2023-08-19 06:22] LABS: Basophils % 0.2 %; Eosinophils # 0.2 10^3/uL (0.0-0.8); Eosinophils % 1.9 %; Hematocrit 35.2 % (36-47); Lymphocytes # 1.6 10^3/uL (0.8-4.8); Lymphocytes % 18.1 %; Mean Corpuscular HGB Conc 32.4 g/dL (30-55); Mean Corpuscular Hemoglobin 29.4 pg (27-33); Mean Corpuscular Volume 90.7 fl (85-98); Mean Platelet Volume 12.3 fL (7.4-10.4); Monocytes # 0.7 10^3/uL (0.2-0.9); Monocytes % 7.9 %; Neutrophils # 6.39 10^3/uL (1.8-7.7); Nucleated Red Blood Cells % 0 %; Platelet Count 157 10^3/cmm (157-399); Red Blood Count 3.88 10^6/uL (3.85-5.65); Red Cell Distribution Width 14.4 % (12.1-15.1)
[2023-08-19] MEDS: citric acid-sodium citrate 30 mL UDC PO (06:38)
[2023-08-19] MEDS: metoclopramide 5 mg/mL SDV 2 mL 10 MG IVP (06:38)
[2023-08-19] MEDS: famotidine 20 mg/2 mL INJ IVP (06:39)
--- NOTE | 2023-08-19 06:53 | PM.OBGYHP ---
Providers/Chief Complaint Admitting Physician: Alexis Lee MD Primary Care Provider: Viri Corrales DO Chief Complaint: Induction HPI DISTRICT LOSS PREVENTION MANAGER History of Present Illness Marianna Mckeno is a 37 year old 9 para 4-0-3-4 female at 39 weeks estimated gestational age based on a first trimester ultrasound presenting for a repeat low-transverse section and a bilateral tubal ligation. Her has been unremarkable. Her blood type is AB+. Her antibody screen is negative. Her infectious disease profile is within normal limits. She passed her glucose screen. She is GBS negative. Her drug screen was negative. This will be her fifth . Present Details : 8 Para: 3 Labs Rubella: Immune RPR: Negative GBS: Negative Review of Systems General: Reports: 10 or more systems reviewed and unremarkable except in HPI and below Const: Reports: fatigue; Denies: fever(s) Eyes: Denies: change in vision Card: Denies: chest pain Musc: Reports: back pain Chap[place]/Lymph: Denies: easy bruising Medications/Allergies Home Medications Medication Instructions Recorded Confirmed Last Taken Type 1 tab PO DAILY 05/24/19 08/19/23 05/16/21 08:00 History diphenhydramine HCl 25 mg capsule 25 mg PO TID PRN Anxiety 08/19/23 08/19/23 08/18/23 History (Benadryl) ferrous sulfate 325 mg (65 mg 325 mg PO DAILY 08/19/23 08/19/23 08/18/23 History iron) tablet (Iron (ferrous sulfate)) Allergies Allergy/AdvReac Type Severity Reaction Status Date / Time No Known Allergies Allergy Verified 08/19/23 05:45 PFSH DISTRICT LOSS PREVENTION MANAGER PFSH: Medical History Anxiety with depression Premature ventricular contractions 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 States negative work-up in 2013. Surgical History History of section, low transverse (06/02/19) Repeat LTCS. Performed [place] Dr. Reeves at [facility] in [place], [place]. Confirmed LTCS with 2 layer closure History of section, low transverse (11/28/16) Scheduled repeat C/S. Performed by Dr. Raghavendra Bean in [place], [place]. Low transverse incision with 2 layer closure confirmed on op note. History of dilation and curettage (~2015) miscarriage History of section, low transverse (05/21/14) Emergency C/S. Performed by Dr. Rajeev Mae at [facility] in [place], [place]. Low transverse incision with 2 layer closure confirmed on op note. Family History Other Family history not known due to adoption Social History Smoking and tobacco/nicotine status: never used tobacco/nicotine Substance/Drug Use: never Other Female Reproductive History: Hx Age of Menarche: 12 Duration of menses: 6-7 days Cycle Length: every 28 days Menstrual flow: normal/abnormal: normal History History History 9 Term 4 0 Miscarriages/Ectopic 4 Living Children 3 Vitals/I&O/Wt Last Vital Signs Temp 97.0 F L 08/19/23 06:10 Pulse 73 08/19/23 06:39 BP 99/62 08/19/23 06:39 O2 Del Method Room Air 08/19/23 05:15 Weight last 48 hrs Weight 168 lb Physical Exam Const: COMMON NORMALS: patient oriented x3 and alert HENMT: COMMON NORMALS: moist oral mucous membranes HEAD & SCALP: normal to inspection Chest: COMMONS NORMALS: normal inspection of the chest Resp: COMMON NORMALS: clear to auscultation bilaterally AUSCULTATION: clear to auscultation bilaterally Cardio: COMMON NORMALS: regular rate and regular rhythm RATE: regular rate RHYTHM: regular rhythm GI: INSPECTION: Yes normal to inspection and Yes other (Gravid. Previous hypertrophic scar noted.) Extremity: COMMON NORMALS: normal to inspection GENERAL: Yes edema (Trace) Neuro: COMMON NORMALS: patient oriented x3, moves all extremities and no sensory deficits noted SENSORIUM/ORIENTATION: Yes alert Psych: COMMON NORMALS: mental status grossly normal Skin: COMMON NORMALS: no rashes or lesions noted GENERAL SKIN EXAM: no rashes or lesions noted Data 08/19/23 05:53 Results Labs OB ([facility]): Obstetrics US 06/02/19 Blood Type AB Positive 06/02/19 Antibody Screen Pending 08/19/23 Hct 35.2 % (36-47) L 08/19/23 Hgb 11.40 g/dL (11.27-16.99) 08/19/23 Rho(D) Type Pending 08/19/23 Plt Count 157 10^3/cmm (157-399) 08/19/23 HCG, Qual Positive (Negative) H 10/04/20 Pap Smear Interpret See note 07/22/19 A&P Assessment and plan (1) 39 weeks gestation of : We have discussed the risks of including the risks of bleeding, infection, and damage to intra-abdominal organs. She understands because she has had multiple C-sections that those risks are increased. We have also discussed the risks of a tubal ligation including the risks of bleeding, infection, and damage intra-abdominal organs. We discussed the possibility of a tubal and a 1-200 chance becoming again. She and her have no further questions and wished to proceed (2) History of section, low transverse: (3) Encounter for sterilization: Attestations Medical Necessity Statement*: I anticipate routine and post care Coding Level of Care Code Acute Code for Chg Fwd Diagnoses 39 weeks gestation of Z3A.39 History of section, low transverse Z98.891 Encounter for sterilization Z30.2
--- NOTE | 2023-08-19 08:32 | ANES.PAUD2 ---
Pre-Anesthetic Update Pre-Anesthetic Assessment: Date of Surgery/Procedure: 08/19/23 Proposed Procedure: Operation Date: 08/19/23 07:20 Proposed Procedures p Section Repeat With Tubal 62986,Z34.83,Z98.890,Z30.2(Bilateral) - Alexis Lee MD Changes from Pre-Anesthetic Assessment: none Last Intake: Intake Last Liquid Date 08/18/23 Last Liquid Time 22:00 Last Solid Date 08/18/23 Last Solid Time 22:00 Labs Last 48hrs: Short CBC 08/19/23 Range/Units 05:53 WBC 9.00 (3.29-11.43) 10^ 3/uL Hgb 11.40 (11.27-16.99) g/ dL Hct 35.2 L (36-47) % MCV 90.7 (85-98) fl Plt Count 157 (157-399) 10^3/c mm Neut % (Auto) 71.0 % Neut # (Auto) 6.39 (1.8-7.7) 10^3/u L Blood Bank 08/19/23 05:53 Blood Type AB Positive Rho(D) Type Rh positive Antibody Screen Negative Vitals: Temperature 97.0 F L 08/19/23 06:10 Pulse Rate 73 08/19/23 06:39 Respiratory Effort Spontaneous 08/19/23 05:15 Respiratory Depth Normal 08/19/23 05:15 Respiratory Patter n Normal 08/19/23 05:15 Blood Pressure 99/62 08/19/23 06:39 Oxygen Delivery Me thod Room Air 08/19/23 05:15 Cardiac Studies: No Data to Display
--- NOTE | 2023-08-19 08:48 | P.OP_ITS ---
Operative Report Date of procedure: August 19, 2023 Pre-op diagnosis: 37-year-old 8 female at 39 weeks with a history of 4 previous sections presenting for repeat section and a bilateral tubal ligation Post-op diagnosis: Status post low-transverse section and intraoperative bilateral tubal ligation Procedure done: 1. repeat lower transverse section 2. Intraoperative bilateral tubal ligation using a modified [place] technique Specimens removed/disposition: 1. Female infant with a weight of and Apgars of 2. Placenta with a three-vessel cord delivered intact 3. Bilateral fallopian tube segments with the right segment being tagged Pathology: Bilateral fallopian tube segments with the right segment being tagged Surgeon: Alexis Lee MD Estimated blood loss (mL): 500 Complications: None Procedure: The patient was brought back to the operating room where she was prepped and draped in usual sterile fashion. Anesthesia was found to be adequate. A lower transverse skin incision was then made with a #10 blade. I dissected off the keloid. I then dissected down to the underlying subcutaneous tissue until arriving at the prerectal fascia. The fascia was then nicked with the scalpel bilaterally. The fascial incisions were then carried laterally with Zhao scissors. Attention was then turned to the superior aspect of the incision which was grasped with kochers and tented up away from the underlying rectus abdominis muscles. The muscles were then dissected away from the fascia manually, with a scalpel, and with Zhao scissors. Attention was then turned to the inferior aspect of the incision, and the fascia was dissected away from the underlying muscle in similar fashion. The rectus abdominis muscles were then spread manually. The peritoneum was entered manually. Excellent visualization of the uterus was noted. A lower transverse uterine incision was then made with a #10 blade. Upon arriving at the intrauterine cavity, the uterine incision was then extended manually. The was noted to be in vertex position. The baby was delivered without difficulty. After delivery of the head, the mouth and nose were suctioned at the site of the incision. There was no meconium. There was no nuchal cord. The baby was then completely delivered and placed on the abdomen. The cord was cut and clamped. The baby was then handed to the waiting nurse. The placenta was removed intact. The uterus was externalized. The intrauterine cavity was cleansed of any remaining debris. The uterine incision was reapproximated in 2 layers. The first layer was performed with 0 Vicryl in a running locked stitch. The second layer was an imbricating stitch also using 0 Vicryl. 2 [id number] stitches were used on areas of the incision that were oozing to maintain excellent hemostasis. Attention was then turned to the right fallopian tube which was ligated cut and cauterized with 0 chromic in a modified [place] fashion. Attention was then turned to the left loping tube which was also ligated cut and cauterized in similar fashion. The uterus was replaced into the abdomen. The peritoneum was then irrigated with warm saline. I reexamined the uterine incision and found it to be hemostatic. The rectus abdominis muscles were then reapproximated using 0 Vicryl in a running stitch. The fascia was then reapproximated using 0 Vicryl in running stitch. The subcutaneous tissue was reapproximated using 0 Vicryl in a running stitch. The skin was reapproximated using ramana. A sterile dressing was placed. All counts were correct x2. Both the mother and baby were in stable condition.
[2023-08-19] MEDS: diphenhydrAMINE 50 mg/mL SDV 1mL 25 MG IVP (10:25)
[2023-08-19] MEDS: ketorolac 30 mg/mL INJ IVP ×2 (14:02→20:40)
[2023-08-19] MEDS: dextrose 5%-lactated ringers 1,000 ML 125 ML IV (14:02)
--- NOTE | 2023-08-19 15:03 | ANE.PACU2 ---
Inpatient post-anesthesia follow up: Airway intact: Yes Vital signs: Temperature 97.9 F Pulse Rate 73 Respiratory Rate 16 Blood Pressure 112/56 Pulse Oximetry 98 Oxygen Delivery Me thod Room Air Oxygen Flow Rate Fraction of Inspir ed Oxygen Hydration adequate: Yes Nausea and vomiting: No Pain level: 2 Mental status: Baseline
[2023-08-19] MEDS: docusate sodium 100 mg Capsule PO (20:40)
[2023-08-19 21:14] LABS: Hematocrit 35.7 % (36-47); Mean Corpuscular HGB Conc 32.5 g/dL (30-55); Mean Corpuscular Hemoglobin 29.5 pg (27-33); Mean Corpuscular Volume 90.8 fl (85-98); Platelet Count 152 10^3/cmm (157-399); Red Blood Count 3.93 10^6/uL (3.85-5.65); Red Cell Distribution Width 14.4 % (12.1-15.1); White Blood Count 10.72 10^3/uL (3.29-11.43)
[2023-08-20] MEDS: ketorolac 30 mg/mL INJ IVP (02:13)
[2023-08-20 04:00] VITALS: BP 97/65; PULSE 74; RESP 16; TEMP 37
[2023-08-20] MEDS: ferrous sulfate EC 325 mg Tablet PO (07:11)
[2023-08-20] MEDS: HYDROcodone-acetaminophen 5-325 mg Tablet PO ×2 (07:11→14:15)
[2023-08-20 10:05] VITALS: BP 100/67; PULSE 72; RESP 17; TEMP 36.9
--- NOTE | 2023-08-20 12:11 | P.DS_ITS ---
Discharge Providers MANAGER SPECIALTY Date of Admission: 08/19/23 05:28 Date of Discharge: 08/20/23 Attending Provider at Admission: Alexis Lee MD Attending Provider at Discharge: Alexis Lee MD Primary Care Provider: Viri Corrales DO Diagnoses at Discharge Discharge Diagnosis (1) 39 weeks gestation of : Status: Acute (2) History of section, low transverse: Status: Acute Permanent problem details: Emergency C/S. Performed by Dr. Rajeev Mae at [facility] in [place], [place]. Low transverse incision with 2 layer closure confirmed on op note. (3) Encounter for sterilization: Status: Acute Reason for Visit Reason for Visit: Induction Hospital Course Hospital Course The patient presented to the hospital for a repeat section and tubal ligation. The procedure went without difficulty. Her course was also unremarkable. Her diet was advanced without difficulty. She passed gas. Her bleeding was within normal limits. She breast-fed well. There were no concerns. Information Peripartum Data: Infant Delivery Method: Physical Exam Narrative: She is in no acute distress Lungs are clear auscultation bilaterally Her heart has a regular rate and rhythm Her fundus is below the umbilicus and firm Her dressing is clean, dry and intact Her extremities have trace edema Urinary Catheter Management: Palma: Cath Placed During This Visit: yes, but has since been removed by the nurse Reason for Continuing Indwelling Catheter: Decision to DC Catheter Urinary Catheter Date of Insertion: 08/19/23 Urinary Catheter Time of Insertion: 07:10 Date Urinary Catheter Removed: 08/19/23 Time Urinary Catheter Discontinued: 16:30 History History History 9 Term 4 0 Miscarriages/Ectopic 4 Living Children 3 Discharge Data Studies Completed and Pending Pending at discharge Category Date Time Status Pathology: Surgical [PTH] Routine Pth 08/19/23 14:22 Received Laboratory Results WBC 10.72 10^3/uL (3.29-11.43) 08/19/23 20:50 RBC 3.93 10^6/uL (3.85-5.65) 08/19/23 20:50 Hgb 11.60 g/dL (11.27-16.99) 08/19/23 20:50 Hct 35.7 % (36-47) L 08/19/23 20:50 MCV 90.8 fl (85-98) 08/19/23 20:50 MCH 29.5 pg (27-33) 08/19/23 20:50 MCHC 32.5 g/dL (30-55) 08/19/23 20:50 RDW 14.4 % (12.1-15.1) 08/19/23 20:50 Plt Count 152 10^3/cmm (157-399) L 08/19/23 20:50 MPV 12.0 fL (7.4-10.4) H 08/19/23 20:50 Neut % (Auto) 71.0 % 08/19/23 05:53 Lymph % (Auto) 18.1 % 08/19/23 05:53 Caroline % (Auto) 7.9 % 08/19/23 05:53 Eos % (Auto) 1.9 % 08/19/23 05:53 Baso % (Auto) 0.2 % 08/19/23 05:53 Neut # (Auto) 6.39 10^3/uL (1.8-7.7) 08/19/23 05:53 Lymph # (Auto) 1.6 10^3/uL (0.8-4.8) 08/19/23 05:53 Caroline # (Auto) 0.7 10^3/uL (0.2-0.9) 08/19/23 05:53 Eos # (Auto) 0.2 10^3/uL (0.0-0.8) 08/19/23 05:53 Baso # (Auto) 0.0 10^3/uL (0.0-0.1) 08/19/23 05:53 Nucleated RBC % (auto) 0 % 08/19/23 05:53 Nucleated RBCs # 0.0 /100WBC 08/19/23 05:53 Blood Type AB Positive 08/19/23 05:53 Rho(D) Type Rh positive 08/19/23 05:53 Antibody Screen Negative 08/19/23 05:53 Vitals Last Vital Signs Temp 98.6 F 08/20/23 04:00 Pulse 74 08/20/23 04:00 Resp 16 08/20/23 04:00 BP 97/65 08/20/23 04:00 Pulse Ox 99 08/19/23 20:43 O2 Del Method Room Air 08/19/23 08:45 Results Labs OB ([facility]): Obstetrics US 06/02/19 Blood Type AB Positive 08/19/23 Antibody Screen Negative 08/19/23 Hct 35.7 % (36-47) L 08/19/23 Hgb 11.60 g/dL (11.27-16.99) 08/19/23 Rho(D) Type Rh positive 08/19/23 Plt Count 152 10^3/cmm (157-399) L 08/19/23 HCG, Qual Positive (Negative) H 10/04/20 Pap Smear Interpret See note 07/22/19 Discharge Plan Discharge Patient Disposition: Home Prescriptions: New docusate sodium 100 mg Capsule 100 mg PO BID Qty: 30 0RF ibuprofen 800 mg Tablet 800 mg PO TID Qty: 45 0RF hydrocodone-acetaminophen 5-325 mg Tablet 1 tab PO Q6H PRN (Reason: Moderate To Severe Pain) Qty: 28 0RF Continued 1 TAB 1 tab PO DAILY Iron (ferrous sulfate) 325 mg (65 mg iron) Tablet 325 mg PO DAILY Discontinued diphenhydramine HCl [Benadryl] 25 mg Capsule 25 mg PO TID PRN (Reason: Anxiety) Discharge Orders: Discharge Order (Routine); Ordered 08/20/23 Ordered By: Alexis Lee Referrals: Alexis Lee MD [Physician] - 08/26/23 1:00 pm (1 week appointment 08/25 @1:00pm 6 week appointment 09/28 @12:50pm ) Discharge Diet: Usual diet Discharge Activity: Limit activity as instructed Patient Instructions: Depression (DC), Opioid Safety (DC), Preeclampsia and Eclampsia After Delivery (GEN), Hemorrhage (DC), OB - Jesus/Latricia, OB Discharge Report, OB Food/Drug Interaction Guide, OB Care at Home, Opioid Safety, Abnormal Bleeding Discharge Attestations MANAGER SPECIALTY Time Spent in Discharge Care*: less than 30 min Coding Level of Care Code Acute Code for Chg Fwd Diagnoses 39 weeks gestation of Z3A.39 History of section, low transverse Z98.891 Encounter for sterilization Z30.2
[2023-08-20 14:05] VITALS: BP 102/69; PULSE 69; RESP 17; TEMP 36.9
== END 2023-08-20 14:10 | disposition home or self-care (01) | DRG 785 ==
PROVIDERS: Admitting Provider Family Medicine; PCP Family Medicine; Visit Provider Family Medicine
PROC: 10D00Z1 Extraction of Products of Conception, Low, Open Approach (ICD-10-PCS; CPT 59514; principal; 2023-08-19 07:00)
DX: O34.211 Maternal care for low transverse scar from previous cesarean delivery (principal); O99.344 Other mental disorders complicating childbirth; F41.8 Other specified anxiety disorders; Z3A.39 39 weeks gestation of pregnancy; Z37.0 Single live birth; Z30.2 Encounter for sterilization
CPT/HCPCS: 36415; 51702; 59025; 59409; 85025; 85027; 86850; 86900; 88302; J1200; J1885; J2274; J2371; J2405; J2765; J3490; J7120; J7121